=== PATIENT | male | born 2000 | race Caucasian/White ===

== ENCOUNTER 2021-10-20 18:14 | Observation (INO) | payer OTHER ==
--- NOTE | 2021-10-20 19:18 | XR ---
EXAMINATION TYPE: XR KUB DATE OF EXAM: 10/20/2021 COMPARISON: NONE HISTORY: Abdominal pain TECHNIQUE: 2 views upright FINDINGS: Bowel gas pattern is normal. There is no sign of intestinal obstruction or pneumoperitoneum . Fecal pattern is normal. No evidence of a mass. Lung bases are clear. IMPRESSION: Nonacute abdomen.
[2021-10-20 20:57] LABS: Basophils # (A) 0.1 k/uL (0-0.2); Basophils % (A) 1 %; Eosinophils # (A) 0.1 k/uL (0-0.7); Eosinophils % (A) 1 %; HCT 48.7 % (39.0-53.0); HGB 15.9 gm/dL (13.0-17.5); Lymphocytes # (A) 2.2 k/uL (1.0-4.8); Lymphocytes % (A) 31 %; MCH 28.9 pg (25.0-35.0); MCHC 32.7 g/dL (31.0-37.0); MCV 88.4 fL (80.0-100.0); Mean Platelet Volume 7.4; Monocytes # (A) 0.4 k/uL (0-1.0); Monocytes % (A) 6 %; Neutrophils # (A) 4.1 k/uL (1.3-7.7); Neutrophils % (A) 60 %; Platelet Count 284 k/uL (150-450); RBC 5.51 m/uL (4.30-5.90); RDW 12.5 % (11.5-15.5); WBC 6.9 k/uL (3.8-10.6)
[2021-10-20 21:10] LABS: ALT 14 U/L (4-49); AST 23 U/L (17-59); African American GFR (CKD) >90 (>60 ml/min/1.73 sqM); Alkaline Phosphatase 108 U/L (38-126); Anion Gap 9 mmol/L; Blood Urea Nitrogen 11 mg/dL (9-20); C Reactive Protein 1.4 mg/dL (<1.0); Calcium 9.7 mg/dL (8.4-10.2); Carbon Dioxide 30 mmol/L (22-30); Chloride 99 mmol/L (98-107); Glucose 86 mg/dL (74-99); Lipase 283 U/L (23-300); Non-African American GFR(CKD) >90 (>60 ml/min/1.73 sqM); Sodium 138 mmol/L (137-145); Total Bilirubin 0.9 mg/dL (0.2-1.3); Total Protein 8.4 g/dL (6.3-8.2)
--- NOTE | 2021-10-20 21:27 | CT ---
EXAMINATION TYPE: CT abdomen pelvis w con DATE OF EXAM: 10/20/2021 COMPARISON: None HISTORY: Right sided abdominal pain, nausea and vomiting. CT DLP: 540.8 mGycm Automated exposure control for dose reduction was used. CONTRAST: Performed with IV Contrast, patient injected with 100ml mL of Isovue 300. Images obtained from the diaphragm to the floor the pelvis with IV contrast. Lung bases are clear. There is no pleural effusion. Heart size is normal. There is no pericardial eff usion. Liver spleen pancreas stomach and gallbladder appear normal. The bile duct are not dilated. There is no adrenal mass. Kidneys show satisfactory contrast opacification. There is no hydronephrosi s. Bladder distends smoothly. There is no inguinal hernia. I see no free fluid in the pelvis. There is no mesenteric edema. No ascites or free air. No sign of a bowel obstruction. Terminal ileum appears normal. Appendix appears to be slightly thickened and best seen on coronal image 29 and measu res more than 9 mm. The lumbar vertebrae have normal alignment. Posterior elements are intact. There is no compression fr acture. Disc spaces are normal. Bony pelvis is intact. IMPRESSION: There appears to be mildly thickened appendix and is suspicious for appendicitis. There is however no significant surrounding inflammatory reaction.
[2021-10-20 21:40] LABS: Appearance,Urine Clear (Clear); Bilirubin,Urine Negative (Negative); Blood,Urine Negative (Negative); Color,Urine Light Yellow; Glucose,Urine (UA) Negative (Negative); Ketones,Urine Negative (Negative); Leukocyte Esterase,Urine Negative (Negative); Nitrite,Urine Negative (Negative); Protein,Urine Negative (Negative); Specific Gravity,Urine 1.006 (1.001-1.035); Urobilinogen,Urine <2.0 mg/dL (<2.0)
[2021-10-20] MEDS ORDERED: NALOXONE 0.4 MG/ML 1 ML VIAL IV PRN (23:14)
[2021-10-20] MEDS ORDERED: MORPHINE SULFATE 4 MG/ML SYRINGE IV PRN (23:14)
[2021-10-20] MEDS ORDERED: ONDANSETRON 4 MG/2 ML VIAL IVP PRN (23:14)
--- NOTE | 2021-10-20 23:14 | ED ---
General Adult HPI - General Chief complaint: Abdominal Pain Stated complaint: Abd pain,diarrhea Time Seen by Provider: 10/20/21 20:39 Source: patient, RN notes reviewed Mode of arrival: ambulatory Limitations: no limitations - History of Present Illness Initial comments: 21-year-old male presents to the emergency department for evaluation of right lower quadrant abdominal pain, onset 2 days prior to arrival. Patient states he is concerned about possible appendicitis. States he has had a poor appetite due to persistent nausea over the past 24 hours. States his pain and nausea have resolved at this time. He has not been checking his temperature at home though does report he thinks he may have had a fever today. Denies any injury or trauma to the abdomen. No chest pain, shortness of breath, difficulty breathing, diarrhea, hematochezia, dysuria, or hematuria. - Related Data Home Medications Medication Instructions Recorded Confirmed No Known Home Medications 10/20/21 10/20/21 Allergies Allergy/AdvReac Type Severity Reaction Status Date / Time amoxicillin Allergy Unknown Verified 10/20/21 21:29 azithromycin [From Zithromax] Allergy Unknown Verified 10/20/21 21:29 Review of Systems ROS Statement: Those systems with pertinent positive or pertinent negative responses have been documented in the HPI. ROS Other: All systems not noted in ROS Statement are negative. Past Medical History Past Medical History: No Reported History History of Any Multi-Drug Resistant Organisms: None Reported Past Surgical History: No Surgical Hx Reported Past Psychological History: No Psychological Hx Reported Smoking Status: Current every day smoker Past Alcohol Use History: None Reported Past Drug Use History: None Reported General Exam Limitations: no limitations (Well-developed, well-nourished male in no acute distress. Initial temperature 100.1, pulse 97, respiration 16, blood pressure 151/79, pulse ox 100% on room air.) General appearance: alert, in no apparent distress ENT exam: Present: normal exam, normal oropharynx, mucous membranes moist Respiratory exam: Present: normal lung sounds bilaterally Cardiovascular Exam: Present: regular rate, normal rhythm, normal heart sounds. Absent: systolic murmur, diastolic murmur, rubs, gallop, clicks GI/Abdominal exam: Present: soft, tenderness (Tenderness upon palpation of the right lower quadrant), guarding (Regarding the right lower abdomen), normal bowel sounds. Absent: distended, rebound, rigid Neurological exam: Present: alert, oriented X3, CN II-XII intact Psychiatric exam: Present: normal affect, normal mood Skin exam: Present: warm, dry, intact, normal color. Absent: rash Course Vital Signs 10/20/21 10/20/21 10/21/21 18:36 22:31 01:22 Temperature 100.1 F H 98.3 F Pulse Rate 97 58 L 67 Respiratory 16 14 18 Rate Blood Pressure 151/79 112/78 121/88 O2 Sat by Pulse 100 98 98 Oximetry - Reevaluation(s) Reevaluation #1: 10/20/21 21:20 Patient declines any need for pain medication or nausea medication at this time. He is resting comfortably pending CT and laboratory studies. 10/20/21 23:[address] Tsang regarding this patient's CT results. He will be admitted to the hospital with IV antibiotics ordered. Medical Decision Making - Medical Decision Making This is a pleasant 21-year-old male with no significant past medical history who presents to the emergency department for evaluation of right lower quadrant abdominal pain 2 days. Upon exam, patient is well-appearing and in no acute distress. His initial temperature is elevated at 100.1. Abdomen is soft with focal area of tenderness of the right lower quadrant. Laboratory studies were reviewed and are unremarkable. He did not require any pain medication. CT is concerning for appendicitis. I did speak with Dr. Tsang who agrees to accept this admission. Patient is started on a second generation cephalosporin as he has a penicillin ALLERGY with unknown reaction. This patient's care was discussed with my attending Dr. Quevedo. - Lab Data Result diagrams: 10/20/21 20:20 10/20/21 20:20 Lab Results 10/20/21 10/20/21 10/20/21 Range/Units 20:20 20:20 20:51 WBC 6.9 (3.8-10.6) k/uL RBC 5.51 (4.30-5.90) m/uL Hgb 15.9 (13.0-17.5) gm/dL Hct 48.7 (39.0-53.0) % MCV 88.4 (80.0-100.0) fL MCH 28.9 (25.0-35.0) pg MCHC 32.7 (31.0-37.0) g/dL RDW 12.5 (11.5-15.5) % Plt Count 284 (150-450) k/uL MPV 7.4 Neutrophils % 60 % Lymphocytes % 31 % Monocytes % 6 % Eosinophils % 1 % Basophils % 1 % Neutrophils # 4.1 (1.3-7.7) k/uL Lymphocytes # 2.2 (1.0-4.8) k/uL Monocytes # 0.4 (0-1.0) k/uL Eosinophils # 0.1 (0-0.7) k/uL Basophils # 0.1 (0-0.2) k/uL Sodium 138 (137-145) mmol/L Potassium 4.0 (3.5-5.1) mmol/L Chloride 99 (98-107) mmol/L Carbon Dioxide 30 (22-30) mmol/L Anion Gap 9 mmol/L BUN 11 (9-20) mg/dL Creatinine 0.91 (0.66-1.25) mg/dL Est GFR (CKD-EPI)AfAm >90 (>60 ml/min/1.73 sqM) Est GFR (CKD-EPI)NonAf >90 (>60 ml/min/1.73 sqM) Glucose 86 (74-99) mg/dL Calcium 9.7 (8.4-10.2) mg/dL Total Bilirubin 0.9 (0.2-1.3) mg/dL AST 23 (17-59) U/L ALT 14 (4-49) U/L Alkaline Phosphatase 108 (38-126) U/L C-Reactive Protein 1.4 H (<1.0) mg/dL Total Protein 8.4 H (6.3-8.2) g/dL Albumin 5.0 (3.5-5.0) g/dL Lipase 283 (23-300) U/L Urine Color Light Yellow Urine Appearance Clear (Clear) Urine pH 6.0 (5.0-8.0) Ur Specific [place] 1.006 (1.001-1.035) Urine Protein Negative (Negative) Urine Glucose (UA) Negative (Negative) Urine Ketones Negative (Negative) Urine Blood Negative (Negative) Urine Nitrite Negative (Negative) Urine Bilirubin Negative (Negative) Urine Urobilinogen <2.0 (<2.0) mg/dL Ur Leukocyte Esterase Negative (Negative) - Radiology Data Radiology results: report reviewed, image reviewed CT of the abdomen and pelvis with contrast was obtained. Report was reviewed in its entirety. Impression per Dr. Nam is there appears to be mildly thickened appendix and is suspicious for appendicitis. There is however no significant surrounding inflammatory reaction. KUB x-ray was obtained. Report was reviewed in its entirety. Impression per Dr. Nam is nonacute abdomen. Disposition Clinical Impression: Appendicitis Disposition: ADMITTED IP TO THIS [facility] Condition: Serious Decision Date: 10/20/21 Decision Time: 23:13
[2021-10-20] MEDS: SODIUM CHLORIDE 0.9% 1,000 ML IV SCH (23:24)
[2021-10-21 07:49] LABS: Basophils # (A) 0.1 k/uL (0-0.2); Basophils % (A) 1 %; Eosinophils # (A) 0.2 k/uL (0-0.7); Eosinophils % (A) 2 %; HCT 42.6 % (39.0-53.0); HGB 13.8 gm/dL (13.0-17.5); Lymphocytes % (A) 27 %; MCH 29.1 pg (25.0-35.0); MCHC 32.4 g/dL (31.0-37.0); MCV 89.8 fL (80.0-100.0); Mean Platelet Volume 7.1; Monocytes # (A) 0.4 k/uL (0-1.0); Monocytes % (A) 6 %; Neutrophils # (A) 4.8 k/uL (1.3-7.7); Neutrophils % (A) 63 %; Platelet Count 270 k/uL (150-450); RBC 4.75 m/uL (4.30-5.90); RDW 12.6 % (11.5-15.5); WBC 7.7 k/uL (3.8-10.6)
[2021-10-21 08:00] LABS: African American GFR (CKD) >90 (>60 ml/min/1.73 sqM); Anion Gap 8 mmol/L; Blood Urea Nitrogen 13 mg/dL (9-20); Calcium 9.1 mg/dL (8.4-10.2); Carbon Dioxide 29 mmol/L (22-30); Chloride 104 mmol/L (98-107); Glucose 90 mg/dL (74-99); Non-African American GFR(CKD) >90 (>60 ml/min/1.73 sqM); Sodium 141 mmol/L (137-145)
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
[2021-10-21] MEDS ORDERED: NEOSTIGMINE 1 MG/ML 10 ML VIAL ONE (10:53)
[2021-10-21] MEDS ORDERED: ROCURONIUM 10 MG/ML (5 ML VIAL) IV ONE (10:53)
[2021-10-21] MEDS ORDERED: PROPOFOL 10 MG/ML 20 ML VIAL IV ONE (10:53)
[2021-10-21] MEDS ORDERED: ONDANSETRON 4 MG/2 ML VIAL ONE (10:53)
[2021-10-21] MEDS ORDERED: SUCCINYLCHOLINE CHLORIDE 100 MG/5 ML SYR IV ONE (10:53)
[2021-10-21] MEDS ORDERED: DEXAMETHASONE SOD PHOSPHATE 10 MG/ML 1 ML VIAL ONE (10:53)
[2021-10-21] MEDS ORDERED: MIDAZOLAM 2 MG/2 ML VIAL ONE (10:53)
[2021-10-21] MEDS ORDERED: KETOROLAC 15 MG/ML 1 ML VIAL ONE (10:53)
[2021-10-21] MEDS ORDERED: GLYCOPYRROLATE 0.2 MG/ML 2 ML VIAL ONE (10:53)
[2021-10-21] MEDS ORDERED: fentaNYL (PF) 50 MCG/ML 2 ML AMP ONE (10:53)
[2021-10-21] MEDS ORDERED: LIDOCAINE 1% INJ 10MG/ML (20 ML MDV) ONE (10:53)
[2021-10-21] MEDS ORDERED: IV FLUID CONTINUATION 1,000 ML IV ONE (10:58)
[2021-10-21] MEDS ORDERED: SODIUM CHLORIDE 0.9% 100 ML with ceFAZolin 2,000 MG IV ONE ×2 (11:15)
[2021-10-21] MEDS ORDERED: BUPIVACAIN-EPI 0.25%-1:200,000 30 ML VIAL SQ ONE ×2 (11:17)
[2021-10-21] MEDS ORDERED: HYDROcodone/APAP 5-325MG 1 EACH TAB PO PRN (11:45)
[2021-10-21] MEDS ORDERED: HYDROmorphone 1 MG/ML 1 ML SYRINGE IVP PRN (11:45)
--- NOTE | 2021-10-21 11:50 | P.OP ---
Date of Procedure: 10/21/21 Procedure(s) Performed: PREOPERATIVE DIAGNOSIS: Acute appendicitis POSTOPERATIVE DIAGNOSIS: Same PROCEDURE: Laparoscopic appendectomy SURGEON: Sharan EBL: 5 mL ANESTHESIA: General COMPLICATIONS: None OPERATIVE PROCEDURE: The patient was brought and placed on the operating table in the supine position. The patient was placed under general anesthesia. The abdomen was prepped and draped in the usual sterile fashion. A small vertical infraumbilical incision was made. The fascia was retracted anteriorly with Rafal forceps. The Veress needle was advanced into the peritoneal cavity. The saline drop test was normal. Insufflation took place to 15 mmHg. A 5 mm trocar was then placed. An additional 5 mm suprapubic trocar was placed under direct visualization as well as a 12 mm left lower quadrant trocar under direct visualization. The appendix was inspected. It was acutely inflamed. The mesoappendix was dissected. The base of the appendix was divided using a linear 45 mm intestinal stapler. The mesentery itself was divided using electrocautery and the Ligaclip. The area was then irrigated. No further purulence or bleeding was seen. The appendix was brought out of the peritoneal cavity through the left lower quadrant trocar site with an Endo Catch bag. The fascia at the 12 mm site was closed using a [id number] 0 Vicryl stitch. The skin at all 3 sites was closed using 4-0 Monocryl sutures. Skin glue was then applied. DISPOSITION: Stable to recovery room
[2021-10-21] MEDS ORDERED: LEVOFLOXACIN 500MG-D5W PMX 500 MG in DEXTROSE/WATER 1 100ML.BAG IVPB SCH (12:00)
[2021-10-21] MEDS ORDERED: SODIUM CHLORIDE 0.9% 1,000 ML IV ONE (12:42)
[2021-10-21] MEDS: SODIUM CHLORIDE 0.9% 1,000 ML IV SCH ×2 (13:16→17:26)
[2021-10-21 13:47] VITALS: RESP 14; TEMP 97.8
[2021-10-21 15:22] VITALS: BP 99/61; PULSE 52
== END 2021-10-21 19:59 | disposition home or self-care (01) ==
LOC: EC 18:14 → 5NMEDONC 23:50 → 4SSUR 10-21 17:40
PROVIDERS: ADMIT Surgery; ATTEND Surgery
DX: K35.80 Unspecified acute appendicitis (principal); K38.8 Other specified diseases of appendix; F17.210 Nicotine dependence, cigarettes, uncomplicated; Z88.0 Allergy status to penicillin; Z88.1 Allergy status to other antibiotic agents; Z87.81 Personal history of (healed) traumatic fracture
CPT/HCPCS: 44970; 96360; 99285; 36415; 88304; 80053; 80048; 83690; 85025 ×2; 86140; 81003; 74018; 74177; G0378; J2250; J1100; J2710; J2405; J0690; J1956; J0694; J2001; J3010; J1885; J0330; J2704; Q9967